=== PATIENT | male | born 1995 | race Caucasian/White ===

== ENCOUNTER 2016-11-21 12:46 | Emergency (ER) | payer MEDICAID ==
--- NOTE | 2016-11-21 12:56 | EDPRACDOC ---
- General Information Stated Complaint: WOUND Time Seen by Provider: 11/21/16 12:50 Information Source: Patient Home Medications: Home Medications Albuterol Sulfate [Proair Hfa] 2 puff INH Q4-6H PRN 08/17/15 Divalproex Sodium [Depakote] 125 mg PO HS 08/17/15 Fluoxetine [Prozac] 20 mg PO HS 08/17/15 Risperidone [Risperdal] 4 mg PO HS 08/17/15 Doxycycline [Vibramycin] 100 mg PO BID 08/18/15 Oxycodone Immediate Release [Oxycodone Immediate Release (OxyIR)] 5 mg PO Q6H PRN 08/18/15 Promethazine [Phenergan] 25 mg PO Q4 PRN 08/18/15 Allergies/Adverse Reactions: Allergies Allergy/AdvReac Type Severity Reaction Status Date / Time aripiprazole [From Abilify] Allergy DYSTONIC Verified 08/18/15 09:47 REACTION - History of Present Illness Onset: last night Wound Location: gluteal cleft Wound Type: Other (abrasion) Wound Discharge: None Previously Treated In: Surgery Current Wound Treatment: None Associated Signs and Symptoms: None Other History: Pt states had pilonidal cyst surgery 1 year ago and last night he sat on binder and felt it cut open incision site. Denies pain or redness. ED Past Medical History - History Reviewed Yes Nurses notes reviewed and agree except as marked - Patient Medical History Respiratory History: Reports: Asthma Psychological History: Reports: Bipolar Disorder - Family Medical History Reports: Hypertension (FATHER), Cancer (FATHER THROAT), Stroke (FATHER), Cardiac Disorders (FATHER). Denies: Diabetes - Social Medical History Smoking Status: Light tobacco smoker (less than 5/day) ETOH: None Substance Abuse: None EDM Review of Systems - Review of Systems Constitutional: No Symptoms Reported. negative: Fever, Chills, Weakness, Fatigue, Loss of Appetite Neurological: No Symptoms Reported. negative: Headache, Dizziness, Seizure, Numbness, Weakness, Speech Difficulty, Gait Difficulty Musculoskeletal: No Symptoms Reported. negative: Neck, Chestwall, Ribs, Back, Shoulder, Arm, Elbow, Forearm, Wrist, Hand, Pelvis, Hip, Femur, Knee, Leg, Ankle , Foot Integumentary: Wound Allergic/Immunologic: No Symptoms Reported. negative: Hives, Itching Hematologic: No Symptoms Reported. negative: Lymphadenopathy, Easy Bruising, Easy Bleeding Psychiatric: No Symptoms Reported. negative: Anxiety, Depression, Hallucinations, Insomnia, Suicidal - Physical Exam Constitutional: No apparent distress, Alert Oriented to: Time, Person, Place Last recorded Vital Signs: Last Vital Signs Temp 98.6 F 11/21/16 12:52 Pulse 91 11/21/16 12:52 Resp 20 11/21/16 12:52 BP 144/89 11/21/16 12:52 Pulse Ox 97 11/21/16 12:52 Oxygen Pulse Oxygen Saturation 97 O2 Device Room Air Oxygen Flow Rate Fraction of Inspired Oxygen ( FIO2) - HEENT Head: Normal ( normocephalic) - Respiratory/Cardiovascular Respiratory: Normal - CTA (BBS clear to auscultation without adventitious sounds ) Cardiovascular: Normal (RRR without murmur, gallop or rub) - Musculoskeletal Back: Normal (Non-Tender) Extremities: Normal (Normal tone, Pulses 2+ No cyanosis or edema, FROM) - Integumentary Skin: Normal, Warm, Dry Lymphatics: Normal (no adenopathy) - Neurologic Memory Impaired: Normal Motor Function: Normal (Normal tone, Pulses 2+ No cyanosis or edema, FROM) Mood Description: Normal Perception: Normal ED Wound Check Exam - Wound Detail Wound Location: gluteal cleft Healing: Well Discharge: None Erythema: None - Other Exam Other Exam Findings: abrasion to L gluteal cleft. Pt appears to have a pocket or fistula in scar tissue. No active drainage from site. - Differential Diagnosis Healing wound Decision Time to Discharge: 12:57 - Departure Disposition: Home Condition: Good Final Diagnosis: Buttock abrasion Qualifiers: Encounter type: initial encounter Qualified Code(s): S30.810A - Abrasion of lower back and pelvis, initial encounter Instructions: Acute Wound Care (ED) Education/Counseling Given To: Patient Education/Counseling Given Regarding: Diagnosis, Treatment, Follow Up Referrals: Dara Cortes PA [Primary Care Provider] - One Week Jeremy Stoner DO [Staff Physician] - One Week Additional Instructions: Follow up with Personal Surgeon for further evaluation of surgical site. Return for worse or different symptoms.
[2016-11-21 13:07] VITALS: BP 152/68; PULSE 108; TEMP 98.1; BMI 24.4
== END 2016-11-21 13:00 | disposition home or self-care (01) ==
LOC: ED 12:46
DX: S30.810A Abrasion of lower back and pelvis, initial encounter (principal); X58.XXXA Exposure to other specified factors, initial encounter; Y93.9 Activity, unspecified
CPT/HCPCS: 99283